=== PATIENT | female | born 1940 | race Caucasian/White ===

== ENCOUNTER → 2020-07-07 | Outpatient (CLI) | payer OTHER ==
[~2020-07-07] MED LIST: BENADRYL25 MG PO; CINNAMON500 MG PO; FENOFIBRATE145 M1 PO; FOSAMAX 70 MG T70 MG PO; GLUCOPHAGE1000 MG PO; LEVO-T100 MCG PO; LIPITOR 40 MG T40 M1 PO; MACROBID 100 M100 MG PO; MILK THISTLE500 MG PO; PAROXETINE HCL20 MG PO; PRINIVIL20 M1 PO; PROTONIX40 M2 PO; TOPROL XL50 MG PO; TURMERIC500 M2 PO; VITAMIN D3125 MC1 PO; XIFAXAN550 M1 PO; ZENPEP DR 20,01 EACH PO; ZINC50 M1 PO; [UNRECOGNIZED DRUG - OTHER] PO
[2020-07-07 11:48] LABS: HEMOGLOBIN 14.5 gm/dL (12.0-15.0); MCH 29.7 pg (26.0-34.0); MCHC 32.9 g/dL (28.0-37.0); MCV 90.2 fL (80.0-100.0); RBC 4.88 mil/uL (4.20-5.00); RDW 14.3 % (10.5-14.5); WBC 12.6 thou/uL (4.0-11.0)
[2020-07-07 11:59] LABS: URINE BILIRUBIN NEGATIVE (Negative); URINE BLOOD NEGATIVE (Negative); URINE CLARITY CLEAR; URINE COLOR YELLOW; URINE GLUCOSE-RANDOM* NEGATIVE (Negative); URINE KETONES NEGATIVE (Negative); URINE LEUKOCYTES-REFLEX NEGATIVE (Negative); URINE NITRITE-REFLEX NEGATIVE (Negative); URINE PROTEIN (DIPSTICK) NEGATIVE (Negative); URINE SPECIFIC GRAVITY >= 1.030 (1.005-1.035); URINE UROBILINOGEN 0.2 E.U./dl (0.2-1.0)
[2020-07-07 12:08] LABS: PROTIME 10.9 Seconds (9.3-11.4)
[2020-07-07 12:17] LABS: ALBUMIN 4.3 g/dL (3.4-5.0); CALCIUM 9.4 mg/dL (8.5-10.1); CREATININE 0.9 mg/dL (0.6-1.0); POTASSIUM 4.9 mmol/L (3.5-5.1); TOTAL BILIRUBIN 0.5 mg/dL (0.2-1.0); TOTAL PROTEIN 7.4 g/dL (6.4-8.2)
--- NOTE | 2020-07-07 14:33 | EKG ---
[place] [address] [facility] [place] [employer] [address] ELECTROCARDIOGRAM REPORT Name: MARGI CARLSON Room #: REG LOLA Grewal#: [id number] Admission: 07/07/20 Attend Phys: Yenny Dominguez DO Discharge: Date of : 42 Report #: [id number] [facility] Test Date: 2020-07-07 Test Time: 11:43:51 Pat Name: MARGI CARLSON Department: Room: Gender: F Assignment Editor: Ole ZAMORA : 1940 Requested By: Deon Lomax Order Number: [id number] MD: Dorian Shelley Measurements Intervals [place] Rate: 66 P: 43 OR: 174 QRS: 15 QRSD: 94 T: 6 QT: 440 QTc: 461 Interpretive Statements Sinus rhythm Baseline wander in lead(s) II,III,aVF No previous ECG available for comparison Electronically Signed On 07-07-2020 14:32:51 CDT by Dorian Shelley [email or web address] <ELECTRONICALLY SIGNED> By: Dorian Shelley MD, [facility] 07/07/20 1432 1143 1143 Dorian Shelley MD, FACC /EPI
[2020-07-08 03:06] LABS: GLYCOHEMOGLOBIN (HGB A1C) 6.1 % (4.8-5.6)
== END ==
LOC: LAB 09:24
PROVIDERS: Orthopaedic Surgery; ATTEND Student in an Organized Health Care Education/Training Program
DX: Z01.812 Encounter for preprocedural laboratory examination (principal); Z20.822 Contact with and (suspected) exposure to COVID-19; I49.9 Cardiac arrhythmia, unspecified

== ENCOUNTER 2020-07-12 10:07 | Observation (INO) | payer OTHER ==
[~2020-07-12] VITALS: Ht 152.4 cm; Wt 73.0 kg
--- NOTE | ~2020-07-12 | O ---
[facility] [place] [address] OPERATIVE REPORT Name: MARGI CARLSON Room #: 442-P [facility] Jerod Grewal#: [id number] Admission: 07/12/20 Attend Phys: Deon Lomax MD Discharge: Date of : 42 Report #: [id number] THIS REPORT FOR: cc: Vinay Terrell David J. DO Abraham, Scott M. MD ~ DATE OF SERVICE: 07/12/2020 PREOPERATIVE DIAGNOSIS: Right knee osteoarthritis. POSTOPERATIVE DIAGNOSIS: Right knee osteoarthritis. PROCEDURE: Right total knee arthroplasty using Navio robotic producer assistant. SURGEON: Deon Lomax MD AMMONIA TECHNICIAN: Lizett Madera PA-C INDICATIONS FOR AMMONIA TECHNICIAN: Throughout the case, extensive retraction and manipulation of the knee was required. This was afforded to me by my producer assistant. ANESTHESIA: LMA with an adductor canal block. IMPLANTS: [employer]hew size 4 cobalt chrome Journey II BCS femoral component, a size 2 tibia, size 12 constrained polyethylene and size 32 patella. TOURNIQUET TIME: 49 minutes. ESTIMATED BLOOD LOSS: 25 mL. COMPLICATIONS: None. SPECIMENS: None. CONDITION UPON LEAVING THE OPERATING ROOM: Stable. INDICATIONS FOR PROCEDURE: The patient is a 80-year-old female with severe right knee osteoarthritis. She had failed conservative measures for this and after discussion with her, she elected for right total knee arthroplasty. DESCRIPTION OF PROCEDURE: Risks, benefits, alternatives, complications were discussed in detail with the patient including but not limited to risk of anesthesia, risk of damage to nerves, arteries, blood vessels, risk for infection, bleeding, risk for continued knee pain and need for reoperation. Informed consent was obtained from the patient on the right knee, was [address] [address] OPERATIVE REPORT Name: MARGI CARLSON Room #: 442-P [facility] Jerod Grewal#: [id number] Admission: 07/12/20 Attend Phys: Deon Lomax MD Discharge: Date of : 42 Report #: [id number] appropriately marked in the preoperative holding area. IV Ancef was given for preoperative antibiotics. Adductor canal block was placed by Anesthesia. She was brought to the operating room and placed in supine position on operating room table. LMA anesthesia was induced without complication. Tourniquet was placed on the right thigh. Right lower extremity was prepped and draped in normal sterile fashion. Timeout was performed properly identifying the patient and procedure as well as the instrumentation and implants. All in the operating room were in agreement. Right lower extremity was exsanguinated, tourniquet was inflated. Tourniquet time was 49 minutes. Standard midline approach to knee was made with 10 blade through the skin. Dissection was taken down sharply to the fascia and deep flaps were developed medially and laterally. Fresh 10 blade was used to make a medial parapatellar arthrotomy and the knee was inspected. There was severe patellofemoral compartment osteoarthritis with moderate medial and lateral compartment osteoarthritis. ACL and PCL were removed sharply. Reference pins were placed in the femur and the tibia. The knee was then digitally mapped using the iPixCel robotic system. Intraoperative plan was made and we sized the size 4 femur with a size 2 tibia and a 10 spacer. After acceptance of the intraoperative plan, the distal femoral cut was made with Navio bur. Distal femoral cutting block was pinned in place and chamfer cuts were made. Attention was turned to the tibia. Remainder of the menisci removed with Bovie cautery. Tibial resection guide was pinned in place using the Navio for placement and tibial resection was made. After this, flexion and extension gaps were checked and found to have good balance laterally in flexion and extension with slight laxity medially. It was felt we could make up for this with a constrained implant. Tibia was sized, found to be a size 2. A size 2 tibial trial was placed, pinned and punched. Size 4 femoral trial was placed and box cut was made. This was then trialed with a size 10 and then up to a size 12 polyethylene and size 12 polyethylene demonstrated 1-2 mm of laxity laterally throughout range of motion with 3-4 mm medially. Again it was felt we could make up for this with a constrained implant, 9 mm of bone was resected from the posterior surface of the patella and a size 32 patellar trial button was placed. Knee was taken through range of motion, found to be stable, found to have good patellar tracking. Trial components were removed. Bony ends were thoroughly irrigated with normal saline. A final size 2 tibia, size 4 Journey II BCS cobalt chrome femur and a size 32 patella were cemented in place using standard cementation techniques. While the cement cured, a periarticular injection consisting of morphine, ropivacaine, epinephrine and Toradol was placed around the knee joint capsule. After the cement cured, tourniquet was deflated. Hemostasis was obtained with Bovie cautery. A final size 12 constrained polyethylene was placed. A gram of vancomycin was placed deep in the joint. The fascia was closed with 0 Vicryl, skin was closed with 2-0 Vicryl, skin staple and a JEREMIAS dressing was applied. The patient tolerated this [address] [address] OPERATIVE REPORT Name: MARGI CARLSON Room #: 442-P [facility] Jerod Grewal#: [id number] Admission: 07/12/20 Attend Phys: Deon Lomax MD Discharge: Date of : 42 Report #: [id number] procedure well and went to the recovery room under care of anesthesia postoperatively. By: [id number] [id number] Deon Lomax MD /nt
[2020-07-12 10:50] VITALS: BP 146/74
[2020-07-12 16:14] VITALS: BP 119/70
[2020-07-12 16:59] VITALS: BP 120/66
--- NOTE | 2020-07-12 17:18 | NUR ---
ASSUMED PT CARE UPON TRANSFER TO UNIT AROUND 1610. PATIENT A&OX4, VSS. PLEASANT AND ABLE TO MAKE NEEDS KNOWN TO STAFF. IV PATENT, FLUIDS INFUSING. REPORTS PAIN OF 3/10, DENYING PAIN MEDS AT THIS TIME. ON 2 LITERS OXYGEN VIA NC. REPORTS NAUSEA, GAVE NAUSA MEDS PER EMAR.
[2020-07-12 19:49] VITALS: BP 102/52
--- NOTE | 2020-07-13 04:03 | NUR ---
ASSESSMENT COMPLETED.S/P RIGHT TKR. POLAR XIANG AND JEREMIAS DRSG IN PLACE. PT ALSO HAS TEDS AND SCDS. R FOOT WITH GOOD CSM. PT IS ON ROOM AIR-SATTING OK WITH NO RESP DISTRESS.USING I/S W/A. AFEBRILE. VOIDING OK. DENIES N/V.CALLS WITH NEEDS.
[2020-07-13 04:59] LABS: HEMATOCRIT 31.9 % (37.0-47.0); HEMOGLOBIN 10.4 gm/dL (12.0-15.0); MCH 29.6 pg (26.0-34.0); MCHC 32.7 g/dL (28.0-37.0); MCV 90.5 fL (80.0-100.0); RBC 3.53 mil/uL (4.20-5.00); RDW 14.4 % (10.5-14.5); WBC 8.8 thou/uL (4.0-11.0)
[2020-07-13 05:04] VITALS: BP 122/56
[2020-07-13 07:25] VITALS: BP 116/63
--- NOTE | 2020-07-13 09:06 | NUR ---
ASSESSMENT: CM REVIEWED CHART AND SPOKE WITH PATIENT. PT IS S/P RIGHT TOTAL KNEE REPLACEMENT. PT REPORTS THAT SHE LIVES IN A HOUSE ALONE BUT STATES SHE IS GOING TO BE STAYING WITH HER DAUGHTER AT DISCHARGE IN HER HOUSE. PT REPORTS SHE IS REQUESTING THAT HOME HEALTH CARE BE ARRANGED FOR 1-2 WEEKS SO SHE WILL NOT HAVE TO WORRY ABOUT A RIDE FOR OUTPATIENT THERAPY. CM NOTIFIED ATTENDING PA. PT HAS NO PREFERENCE OF COMPANY. CM [facility]. PT REPORTS AT HER DAUGHTERS HOME SHE HAS ONE STEP TO ENTER AND REPORTS SHE WILL BE STAYING ON THE MAIN LEVEL. PT REPORTS THAT SHE ALREADY HAS A CANE AND WALKER AT HOME. PT REPORTS NO HX OF IN THE PAST. [place] [id number] [place] [address]. CM NOTIFIED [facility] AND AWAITING THEIR INPUT AT THIS TIME. PT IS TO WORK WITH THERAPY THIS AM. CM WILL CONTINUE TO FOLLOW TO ASSIST NEEDED.
[2020-07-13 09:08] VITALS: BP 116/63
[2020-07-13 09:11] VITALS: BP 116/63
--- NOTE | 2020-07-13 12:01 | NUR ---
Assumed pt care this am. Pt is alert & oriented x4. Pt has IV site on L hand. Pt is accucheck achs. Pt has scd, volodymyr dressing, polar pack and anabel hoses. Pt uses bedpan. Pt is on room air. Diet & Medication well tolerated. Pt on the room watching tv, bed on the lowest position, call light within reach. Will continue to monitor pt. Follow POC.
== END 2020-07-13 14:41 | disposition home or self-care (01) ==
LOC: OR 10:07 → TBA 10:09 → OR 12:14 → 4S 14:32 → OR 14:32 → 4S 07-13 14:41
PROVIDERS: ADMIT Orthopaedic Surgery; ATTEND Orthopaedic Surgery
DX: M17.11 Unilateral primary osteoarthritis, right knee (principal); Z79.899 Other long term (current) drug therapy
CPT/HCPCS: 50010; 50101; 50415; 50954; 51130; 51225; 51320; 51412; 52001; 52282; 53000; 53078; 56527; 56528; 57095; 57103; 57110; 57127; 57180; 58239; 64039; 70005